=== PATIENT | male | born 1970 | race Caucasian/White ===

== ENCOUNTER 2023-01-16 23:25 | Inpatient (IN) | payer OTHER ==
[2023-01-16 23:30] VITALS: BMI 28.5
[2023-01-17] MEDS ORDERED: ALBUTEROL SO4 2.5/IPRATROPIUM 0.5 INH SOL 3 ML VIAL.NEB. NEB ONE (00:08)
[2023-01-17 00:30] LABS: BASO % 0.4 % (0-2.0); HEMATOCRIT 43.7 % (35.4-49); HEMOGLOBIN 15.4 GM/dL (11.7-16.9); LYMPH % 5.5 % (8-40); MCH 31.1 pg (25.7-33.7); MCHC 35.2 g/dl (32.0-35.9); MEAN CELL VOLUME 88.2 fl (80-96); MEAN PLT VOLUME 7.5 fl (7.5-11.1); MONO % 5.2 % (3.8-10.2); NEUT % 87.9 % (42.8-82.8); PLATELET COUNT 179 10^3/uL (134-434); RBC 4.95 M/mm3 (4.00-5.60); RDW 13.4 % (11.9-15.9); WHITE BLOOD COUNT 19.2 K/mm3 (4.0-10.0)
[2023-01-17] MEDS ORDERED: ACETAMINOPHEN 1000 MG/100 ML BAG IVPB ONE (00:38)
[2023-01-17 00:50] LABS: POTASSIUM 3.8 mmol/L (3.5-5.1)
[2023-01-17 00:53] LABS: CALCIUM 8.8 mg/dL (8.5-10.1)
[2023-01-17 00:54] LABS: ALBUMIN 4.1 g/dl (3.4-5.0); BLOOD UREA NITROGEN 20.5 mg/dL (7-18)
[2023-01-17 00:57] LABS: CREATININE 1.4 mg/dL (0.55-1.3)
[2023-01-17 00:58] LABS: TOT PROT 7.3 g/dl (6.4-8.2)
[2023-01-17 00:59] LABS: BILIRUBIN,TOTAL 0.7 mg/dL (0.2-1)
[2023-01-17] MEDS ORDERED: SODIUM CHLORIDE 0.9% 500 ML INFUS.BAG IV ONE (01:11)
[2023-01-17] MEDS: ALBUTEROL SO4 2.5/IPRATROPIUM 0.5 INH SOL 3 ML VIAL.NEB. NEB SCH ×4 (07:32→20:45)
[2023-01-17 07:35] LABS: HEMATOCRIT 40.5 % (35.4-49); HEMOGLOBIN 13.8 GM/dL (11.7-16.9); MCH 30.8 pg (25.7-33.7); MEAN CELL VOLUME 90.6 fl (80-96); MEAN PLT VOLUME 7.5 fl (7.5-11.1); PLATELET COUNT 168 10^3/uL (134-434); RBC 4.48 M/mm3 (4.00-5.60); RDW 13.3 % (11.9-15.9); WHITE BLOOD COUNT 20.3 K/mm3 (4.0-10.0)
[2023-01-17 07:56] LABS: CALCIUM 8.5 mg/dL (8.5-10.1)
[2023-01-17 07:57] LABS: BLOOD UREA NITROGEN 18.6 mg/dL (7-18)
[2023-01-17 08:00] LABS: CREATININE 1.3 mg/dL (0.55-1.3)
[2023-01-17 09:12] LABS: POTASSIUM 4.6 mmol/L (3.5-5.1)
[2023-01-17 09:39] LABS: ANISOCYTOSIS 0; HELMET CELLS 0; HOWELL-JOLLY BODIES 0; MACROCYTOSIS 0; OVALOCYTE 0; ROULEAU 0; SICKELED CELLS 0; TARGET CELLS 0; TEAR DROP CELLS 0; TOXIC GRANULATION 0
[2023-01-17] MEDS ORDERED: LAMOTRIGINE 250 MG PO SCH (10:00)
[2023-01-17] MEDS ORDERED: methylPREDNISolone NA SUCC 40 MG/1 ML VIAL IVPUSH SCH (10:00)
[2023-01-17] MEDS ORDERED: PATIENT'S OWN MEDICATION (NON-FORMULARY) (Sertraline Hcl [Zoloft] 100 MG Tablet) PO SCH (10:00)
[2023-01-17] MEDS: BUDESONIDE/FORMETEROL FUMARATE 80/4.5 mcg INHALER IH SCH ×2 (10:27→21:25)
[2023-01-17] MEDS: ENOXAPARIN NA (PORCINE) 40 MG/0.4 ML DISP.SYRIN SQ SCH (10:27)
[2023-01-17] MEDS: AZITHROMYCIN IVPB 500 MG/250 ML BAG IVPB SCH (10:27)
[2023-01-17] MEDS: FAMOTIDINE 20 MG TABLET PO SCH ×2 (10:28→21:25)
[2023-01-17] MEDS: SERTRALINE HCL 100 MG, SERTRALINE HCL 25 MG PO SCH (10:28)
[2023-01-17] MEDS: CEFTRIAXONE 1 GM in DEXTROSE 5%-WATER - 50 ML IVPB SCH (13:02)
[2023-01-17] MEDS: PATIENT'S OWN MEDICATION (NON-FORMULARY) (Lamotrigine [Lamictal Xr] 200 MG) PO SCH (13:33)
[2023-01-17] MEDS ORDERED: ACETAMINOPHEN 325 MG TABLET (FP) PO PRN ×2 (16:21→16:42)
[2023-01-17] MEDS ORDERED: ACETAMINOPHEN 1000 MG/100 ML BAG IVPB PRN (17:02)
[2023-01-17 22:45] VITALS: RESP 18
[2023-01-18] MEDS: ALBUTEROL SO4 2.5/IPRATROPIUM 0.5 INH SOL 3 ML VIAL.NEB. NEB SCH ×4 (08:25→20:53)
[2023-01-18 09:13] LABS: BASO % 0.2 % (0-2.0); EOS % 1.3 % (0-4.5); HEMATOCRIT 39.7 % (35.4-49); HEMOGLOBIN 14.1 GM/dL (11.7-16.9); LYMPH % 17.1 % (8-40); MCH 31.5 pg (25.7-33.7); MCHC 35.5 g/dl (32.0-35.9); MEAN CELL VOLUME 88.7 fl (80-96); MEAN PLT VOLUME 7.8 fl (7.5-11.1); MONO % 4.9 % (3.8-10.2); NEUT % 76.5 % (42.8-82.8); PLATELET COUNT 186 10^3/uL (134-434); RBC 4.47 M/mm3 (4.00-5.60); RDW 13.7 % (11.9-15.9); WHITE BLOOD COUNT 14.8 K/mm3 (4.0-10.0)
[2023-01-18] MEDS: PATIENT'S OWN MEDICATION (NON-FORMULARY) (Lamotrigine [Lamictal Xr] 200 MG) PO SCH (09:26)
[2023-01-18 09:27] LABS: POTASSIUM 4.3 mmol/L (3.5-5.1)
[2023-01-18] MEDS: ENOXAPARIN NA (PORCINE) 40 MG/0.4 ML DISP.SYRIN SQ SCH (09:27)
[2023-01-18] MEDS: SERTRALINE HCL 100 MG, SERTRALINE HCL 25 MG PO SCH (09:27)
[2023-01-18 09:30] LABS: BLOOD UREA NITROGEN 15.1 mg/dL (7-18); CALCIUM 8.7 mg/dL (8.5-10.1)
[2023-01-18] MEDS: FAMOTIDINE 20 MG TABLET PO SCH ×2 (09:30→21:37)
[2023-01-18] MEDS: CEFTRIAXONE 1 GM in DEXTROSE 5%-WATER - 50 ML IVPB SCH (09:30)
[2023-01-18] MEDS: AZITHROMYCIN IVPB 500 MG/250 ML BAG IVPB SCH (09:31)
[2023-01-18 09:34] LABS: CREATININE 1.2 mg/dL (0.55-1.3)
[2023-01-18] MEDS: BUDESONIDE/FORMETEROL FUMARATE 80/4.5 mcg INHALER IH SCH ×2 (09:55→21:37)
[2023-01-19] MEDS: ALBUTEROL SO4 2.5/IPRATROPIUM 0.5 INH SOL 3 ML VIAL.NEB. NEB SCH ×4 (07:35→20:15)
[2023-01-19 07:39] LABS: HEMATOCRIT 42.3 % (35.4-49); HEMOGLOBIN 14.6 GM/dL (11.7-16.9); MCH 31.2 pg (25.7-33.7); MCHC 34.4 g/dl (32.0-35.9); MEAN CELL VOLUME 90.6 fl (80-96); MEAN PLT VOLUME 7.8 fl (7.5-11.1); PLATELET COUNT 213 10^3/uL (134-434); RBC 4.67 M/mm3 (4.00-5.60); RDW 13.2 % (11.9-15.9); WHITE BLOOD COUNT 13.3 K/mm3 (4.0-10.0)
[2023-01-19 08:03] LABS: POTASSIUM 4.4 mmol/L (3.5-5.1)
[2023-01-19 08:12] LABS: BLOOD UREA NITROGEN 14.2 mg/dL (7-18); CALCIUM 9.4 mg/dL (8.5-10.1)
[2023-01-19 08:15] LABS: CREATININE 1.2 mg/dL (0.55-1.3)
[2023-01-19 08:59] LABS: ANISOCYTOSIS 0; MACROCYTOSIS 0
[2023-01-19] MEDS: PATIENT'S OWN MEDICATION (NON-FORMULARY) (Lamotrigine [Lamictal Xr] 200 MG) PO SCH (09:33)
[2023-01-19] MEDS: SERTRALINE HCL 100 MG, SERTRALINE HCL 25 MG PO SCH (09:33)
[2023-01-19] MEDS: ENOXAPARIN NA (PORCINE) 40 MG/0.4 ML DISP.SYRIN SQ SCH (09:34)
[2023-01-19] MEDS: FAMOTIDINE 20 MG TABLET PO SCH (09:34)
[2023-01-19] MEDS: BUDESONIDE/FORMETEROL FUMARATE 80/4.5 mcg INHALER IH SCH (09:36)
[2023-01-19] MEDS: CEFTRIAXONE 1 GM in DEXTROSE 5%-WATER - 50 ML IVPB SCH (09:36)
[2023-01-19] MEDS: AZITHROMYCIN IVPB 500 MG/250 ML BAG IVPB SCH (09:36)
[2023-01-19] MEDS ORDERED: ALBUTEROL SO4 HFA INHALER IH PRN (13:37)
[2023-01-19 14:48] VITALS: BP 113/69; TEMP 98.1
[2023-01-19 14:58] VITALS: PULSE 80
== END 2023-01-19 15:42 | disposition home or self-care (01) | DRG 193 ==
LOC: JER 23:25 → JERBED 01-17 03:28 → OBSVTOIN 01-17 03:38 → J4S 01-17 04:59
PROVIDERS: ADMIT Internal Medicine; ATTEND Internal Medicine
DX: J18.9 Pneumonia, unspecified organism (principal); J96.01 Acute respiratory failure with hypoxia; N17.9 Acute kidney failure, unspecified; E86.0 Dehydration; K21.9 Gastro-esophageal reflux disease without esophagitis; F32.A Depression, unspecified
CPT/HCPCS: 0241U-QW; 36415; 71046-TC-FY; 71275-TC; 76775-TC; 80048; 80053; 82550; 85025; 87040; 87081; 87086; 87899; 93005; 93010; 94010; 94640; 94761; 99285-25; G0378; Q9967